=== PATIENT | male | born 1965 | race Caucasian/White ===

== ENCOUNTER 2017-08-28 12:45 | Emergency (ER) | payer BC ==
[2017-08-28 13:44] LABS: Absolute Lymphocytes (CBC) 2.8 K/uL (0.7-4.9); Absolute Monocytes 0.9 K/uL (0.1-1.3); Absolute Neutrophil 5.3 K/uL (1.8-8.0); Basophils % 0.8 % (0-1.3); Eosinophils % 2.7 % (0-4.4); Hematocrit 46.9 % (39.6-49.0); Lymphocytes % 30.1 % (15.3-44.8); MCH 28.5 pg (27.0-35.0); MCV 84.9 fL (80-100); MPV 8.8 fL (7.6-11.3); Monocytes % 9.7 % (3.3-12.3); RBC Red Blood Cell Count 5.52 M/uL (4.33-5.43)
[2017-08-28 13:47] LABS: Protime INR 0.97
[2017-08-28 13:56] LABS: ALT/SGPT 35 U/L (12-78); AST/SGOT 18 U/L (15-37); Alkaline Phosphatase 111 U/L (45-117); BUN Blood Urea Nitrogen 15 mg/dL (7-18); Bicarbonate 24 mmol/L (21-32); Bilirubin Direct < 0.1 mg/dL (0-0.2); Bilirubin Total 0.5 mg/dL (0.2-1.0); CKMB Creatine Kinase MB 1.1 ng/mL (0.3-3.6); Creatine Phosphokinase 157 U/L (39-308); Glucose Level 141 mg/dL (74-106); Magnesium 2.1 mg/dL (1.8-2.4); Potassium 3.5 mmol/L (3.5-5.1); Protein, Total 7.9 g/dL (6.4-8.2); Sodium Level 137 mmol/L (136-145)
[2017-08-28] MEDS ORDERED: MECLIZINE HCL 12.5 MG TAB ONE ×2 (14:22→14:25)
[2017-08-28] MEDS ORDERED: ONDANSETRON 4 MG (ODT) TAB ONE (14:23)
[2017-08-28] MEDS ORDERED: ONDANSETRON 4 MG/2 ML VIAL ONE (14:25)
--- NOTE | 2017-08-28 14:36 | RAD REPORT ---
EXAM DESCRIPTION: CT - Head Brain Wo Cont - 08/28/2017 2:06 pm CLINICAL HISTORY: Weakness, dizziness, syncope COMPARISON: None. TECHNIQUE: Axial 5 mm thick images of the head were obtained without IV contrast. All CT scans are performed using dose optimization technique as appropriate and may include automated exposure control or mA/KV adjustment according to patient size. FINDINGS: No intracranial hemorrhage, mass, edema or shift of mid-line structures. No acute infarcti on changes seen. No abnormal extra-axial fluid collections. Ventricles are normal. No cortical edema or sulcal effacement. Physiologic calcifications seen. Mastoid air cells and visualized portions of the paranasal sinuses are clear. No acute bony findings. IMPRESSION: Negative non-contrast CT head examination for acute finding.
--- NOTE | 2017-08-28 15:16 | RAD REPORT ---
EXAM DESCRIPTION: RAD - Chest Single View - 08/28/2017 2:06 pm CLINICAL HISTORY: Shortness of breath COMPARISON: None. TECHNIQUE: AP portable chest image was obtained 1404 hours . FINDINGS: Lung volumes are low. This accentuates vasculature and lung markings. Minimal interstitial edema or infiltrate could be masked. Heart size is normal range. Trachea is midline. No measurable p leural effusion and no pneumothorax. No gross bony abnormality seen. No acute aortic findings suspect ed. IMPRESSION: Vasculature and lung markings accentuated by shallow inspiration. Minimal edema or infil trate could be masked.
--- NOTE | 2017-08-28 16:29 | EDPHYS ---
Physician Documentation [facility] Name: Chaitanya Art Age: 52 yrs Sex: Male : 1965 Arrival Date: 08/28/2017 Time: 12:47 Bed 15 Private MD: Dhruv Bhatt B ED Physician Azam Kolb HPI: 08/28 14:00 This 52 yrs old Male presents to ER via Wheelchair with complaints of pm1 Dizziness. 14:00 The patient presents with vertigo. Onset: The symptoms/episode began/occurred 3 pm1 month(s) ago. Context:. Associated signs and symptoms: Pertinent positives: nausea, Tingling to right arm, Pertinent negatives: abdominal pain, chest pain, confusion, focal weakness, headache, palpitations, shortness of breath. Severity of symptoms: in the emergency department the symptoms have improved. Patient's baseline: Neuro: alert and fully oriented, Motor: no deficits, Ambulation: walks without assistance, Speech: normal, The patient has a previous history of vertigo. The patient has experienced similar episodes in the past, chronically, but today's symptoms are worse. Patient with vertigo symptoms for the past three months. When the patient changes position and looks left he gets the sensation of the room spinning. Patient has tinnitus in his right ear and right ear pressure/pain when he has the vertigo symptoms. Has addressed this with his PCP and was told that it was sinus congestion. Recommended treatment with antihistamines. Patient takes OTC antihistamines and they improve his vertigo. Today the patient was looking left while standing up from the [employer] at [employer] and experienced vertigo and nausea. Patient without any headache or chest pain. Historical: - Allergies: 13:04 NKA; iw - Home Meds: 13:04 metoprolol tartrate 25 mg Oral tab 1 tab 2 times per day [Active]; amlodipine 5 mg tab iw 1 tab once daily [Active]; atorvastatin 40 mg oral tab 1 tab once daily [Active]; - PMHx: 13:04 Hypertension; Hyperlipidemia; Kidney stones; iw - PSHx: 13:04 back; iw - Immunization history:: Adult Immunizations. - Social history:: Smoking status: unknown. - Ebola Screening: : Patient denies travel to an Ebola-affected area in the 21 days before illness onset. ROS: 14:00 Constitutional: Negative for fever, chills, and weight loss, Eyes: Negative for injury, pm1 pain, redness, and discharge, ENT: Negative for injury, pain, and discharge, Neck: Negative for injury, pain, and swelling, Cardiovascular: Negative for chest pain, palpitations, and edema, Respiratory: Negative for shortness of breath, cough, wheezing, and pleuritic chest pain. 14:00 Back: Negative for injury and pain, : Negative for injury, bleeding, discharge, and swelling, MS/Extremity: Negative for injury and deformity, Skin: Negative for injury, rash, and discoloration. 14:00 Abdomen/GI: Positive for nausea, Negative for abdominal pain, vomiting, diarrhea, constipation. 14:00 Neuro: Positive for dizziness, Negative for altered mental status, gait disturbance, headache, loss of consciousness, weakness. Exam: 14:00 Constitutional: This is a well developed, well nourished patient who is awake, alert, pm1 and in no acute distress. Head/Face: Normocephalic, atraumatic. Eyes: Pupils equal round and reactive to light, extra-ocular motions intact. Lids and lashes normal. Conjunctiva and sclera are non-icteric and not injected. Cornea within normal limits. Periorbital areas with no swelling, redness, or edema. ENT: Nares patent. No nasal discharge, no septal abnormalities noted. Tympanic membranes are normal and external auditory canals are clear. Oropharynx with no redness, swelling, or masses, exudates, or evidence of obstruction, uvula midline. Mucous membranes moist. Neck: Trachea midline, no thyromegaly or masses palpated, and no cervical lymphadenopathy. Supple, full range of motion without nuchal rigidity, or vertebral point tenderness. No Meningismus. Chest/axilla: Normal chest wall appearance and motion. Nontender with no deformity. No lesions are appreciated. Cardiovascular: Regular rate and rhythm with a normal S1 and S2. No gallops, murmurs, or rubs. Normal PMI, no JVD. No pulse deficits. Respiratory: Lungs have equal breath sounds bilaterally, clear to auscultation and percussion. No rales, rhonchi or wheezes noted. No increased work of breathing, no retractions or nasal flaring. Abdomen/GI: Soft, non-tender, with normal bowel sounds. No distension or tympany. No guarding or rebound. No evidence of tenderness throughout. Back: No spinal tenderness. No costovertebral tenderness. Full range of motion. Skin: Warm, dry with normal turgor. Normal color with no rashes, no lesions, and no evidence of cellulitis. MS/ Extremity: Pulses equal, no cyanosis. Neurovascular intact. Full, normal range of motion. 14:00 Neuro: Orientation: is normal, Mentation: is normal, Cranial nerves: CN II- XII are normal as tested, Cerebellar function: normal finger to nose testing, Motor: moves all fours, strength is 5/5 in all extremities, Sensation: is normal, no obvious gross deficits. 14:00 Psych: Behavior/mood is cooperative, anxious, Affect is animated, Oriented to person, pm1 place, time. Vital Signs: 13:03 BP 133 / 87; Pulse 75; Resp 18; Pulse Ox 98% on R/A; iw 13:49 BP 107 / 90; Pulse 79; Resp 18; Pulse Ox 100% on 2 lpm NC; tl3 15:34 BP 144 / 92; Pulse 65; Resp 18; Pulse Ox 97% on R/A; tl3 16:59 BP 121 / 88; Pulse 68; Resp 18; Pulse Ox 98% ; tl3 MDM: 13:19 Patient medically screened. pm1 16:20 ED course: Patient's symptoms resolved with medications given in the ER. Patient states pm1 his is ready to go home and would like a prescription for the medications that have resolved his vertigo. 16:26 Data reviewed: vital signs. Data interpreted: Pulse oximetry: on room air is 97 %. pm1 Interpretation: normal. Counseling: I had a detailed discussion with the patient and/or guardian regarding: the historical points, exam findings, and any diagnostic results supporting the discharge/admit diagnosis, lab results, radiology results, the need for outpatient follow up, an ENT specialist, a neurologist, to return to the emergency department if symptoms worsen or persist or if there are any questions or concerns that arise at home. 08/28 13:20 Order name: Basic Metabolic Panel; Complete Time: 14:13 tl3 08/28 13:20 Order name: CBC with Diff; Complete Time: 14:13 tl3 08/28 13:20 Order name: Ckmb; Complete Time: 14: tl3 08/28 13:20 Order name: CPK; Complete Time: 14:13 tl3 08/28 13:20 Order name: LFT's; Complete Time: 14:13 tl3 08/28 13:20 Order name: Magnesium; Complete Time: 14:13 tl3 08/28 13:20 Order name: PT-INR; Complete Time: 14:13 tl3 08/28 13:20 Order name: Ptt, Activated; Complete Time: 14:13 tl3 08/28 13:20 Order name: Troponin (emerg Dept Use Only); Complete Time: 14:13 tl3 08/28 13:20 Order name: XRAY Chest (1 view); Complete Time: 15:39 tl3 08/28 13:20 Order name: EKG; Complete Time: 13:23 tl3 08/28 13:39 Order name: CT Head Brain wo Cont; Complete Time: 15:09 pm1 08/28 13:20 Order name: Cardiac monitoring; Complete Time: 13:22 tl3 08/28 13:20 Order name: EKG - Nurse/Tech; Complete Time: 13:22 tl3 08/28 13:20 Order name: IV Saline Lock; Complete Time: 13:22 tl3 08/28 13:20 Order name: Labs collected and sent; Complete Time: 13:22 tl3 08/28 13:20 Order name: O2 Per Protocol; Complete Time: 13:22 tl3 08/28 13:20 Order name: O2 Sat Monitoring; Complete Time: 13:22 tl3 Administered Medications: 14:32 Drug: Meclizine 50 mg Route: PO; tl3 16:58 Follow up: Response: No adverse reaction tl3 14:32 Drug: Zofran 4 mg Route: IVP; Site: left antecubital; tl3 16:58 Follow up: Response: No adverse reaction; Nausea is decreased tl3 Point of Care Testing: Blood Glucose: 13:03 Blood Glucose: 119 mg/dL; iw Ranges: Critical Glucose Levels:Adult <50 mg/dl or >400 mg/dl <40 mg/dl or >180 mg/dl Disposition: 08/29 16:13 Co-signature as Attending Physician, Azam OLIVA I agree with the assessment and beni plan of care. Disposition: 08/28/17 16:28 Discharged to Home. Impression: Benign paroxysmal vertigo. - Condition is Stable. - Discharge Instructions: Benign Positional Vertigo. - Prescriptions for Meclizine 25 mg Oral Tablet - take 1 tablet by ORAL route every 8 hours As needed; 30 tablet. Zofran 4 mg Oral Tablet - take 1 tablet by BUCCAL route every 8 hours As needed; 20 tablet. - Medication Reconciliation Form, Thank You Letter, Antibiotic Education form. - Follow up: Emergency Department; When: As needed; Reason: Worsening of condition. Follow up: Gaby Hansen MD; When: 2 - 3 days; Reason: Recheck today's complaints, Continuance of care, Re-evaluation by your physician. Follow up: Mynor Leiva MD; When: 2 - 3 days; Reason: Recheck today's complaints, Continuance of care, Re-evaluation by your physician. - Problem is new. - Symptoms have improved. Signatures: Dispatcher [employer] EDMS Azam Kolb MD MD cha Williams, Irene, RN RN iw Gerald Reyes NP ENGINEER SERGEANT pm1 Genie Wallace RN RN tl3 Corrections: (The following items were deleted from the chart) 08/28 17:02 16:28 08/28/2017 16:28 Discharged to Home. Impression: Benign paroxysmal vertigo. tl3 Condition is Stable. Forms are Medication Reconciliation Form, Thank You Letter, Antibiotic Education, Prescription Opioid Use. Follow up: Emergency Department; When: As needed; Reason: Worsening of condition. Follow up: Gaby Hansen; When: 2 - 3 days; Reason: Recheck today's complaints, Continuance of care, Re-evaluation by your physician. Follow up: Mynor Leiva; When: 2 - 3 days; Reason: Recheck today's complaints, Continuance of care, Re-evaluation by your physician. Problem is new. Symptoms have improved. pm1
--- NOTE | 2017-08-28 16:29 | ER ---
Nurse's Notes [facility] Name: Chaitanya Art Age: 52 yrs Sex: Male : 1965 Arrival Date: 08/28/2017 Time: 12:47 Bed 15 Private MD: Dhruv Bhatt B Diagnosis: Benign paroxysmal vertigo Presentation: 08/28 13:00 Presenting complaint: Patient states: got really dizzy while leaving congregation at 1210, iw feels like both arms are numb, pale, diaphoretic, mild SOB, denies CP, denies n/v. CM=[id number]. pt states he has had dizziness recently due to bp medication, worse today. Transition of care: patient was not received from another setting of care. Onset of symptoms was August 28, 2017. 13:00 Method Of Arrival: Wheelchair iw 13:01 Risk Assessment: Do you want to hurt yourself or someone else? Patient reports no iw desire to harm self or others. Initial Sepsis Screen: Does the patient meet any 2 criteria? No. Patient's initial sepsis screen is negative. Does the patient have a suspected source of infection? No. Patient's initial sepsis screen is negative. Care prior to arrival: None. 13:01 Acuity: SORIN 2 iw Historical: - Allergies: 13:04 NKA; iw - Home Meds: 13:04 metoprolol tartrate 25 mg Oral tab 1 tab 2 times per day [Active]; amlodipine 5 mg tab iw 1 tab once daily [Active]; atorvastatin 40 mg oral tab 1 tab once daily [Active]; - PMHx: 13:04 Hypertension; Hyperlipidemia; Kidney stones; iw - PSHx: 13:04 back; iw - Immunization history:: Adult Immunizations. - Social history:: Smoking status: unknown. - Ebola Screening: : Patient denies travel to an Ebola-affected area in the 21 days before illness onset. Screenin:14 Abuse screen: Denies threats or abuse. Nutritional screening: No deficits noted. tl3 Tuberculosis screening: No symptoms or risk factors identified. Fall Risk None identified. Assessment: 13:14 General: Appears distressed, uncomfortable, obese, well groomed, well developed, well tl3 nourished, Behavior is cooperative, appropriate for age, anxious. Pain: Denies pain. Neuro: Level of Consciousness is awake, alert, obeys commands, Oriented to person, place, time, situation, Appropriate for age Reports dizziness, weakness. Cardiovascular: Denies chest pain, Capillary refill < 3 seconds in bilateral fingers. Respiratory: Reports shortness of breath at rest since one hour CONTRACTOR GENERAL ENGINEERING Airway is patent Respiratory effort is even, unlabored, Respiratory pattern is regular, symmetrical, tachypnea Breath sounds are clear bilaterally. GI: No signs and/or symptoms were reported involving the gastrointestinal system. : No signs and/or symptoms were reported regarding the genitourinary system. EENT: No signs and/or symptoms were reported regarding the EENT system. EENT: Reports ringing in left ear right ear is completely plugged feeling. Derm: Skin is diaphoretic, Skin is pale, Skin temperature is cool. 15:34 Reassessment: Patient appears in no apparent distress at this time. No changes from tl3 previously documented assessment. Patient and/or family updated on plan of care and expected duration. Pain level reassessed. Patient is alert, oriented x 3, equal unlabored respirations, skin warm/dry/pink. pt feeling much better. Vital Signs: 13:03 BP 133 / 87; Pulse 75; Resp 18; Pulse Ox 98% on R/A; iw 13:49 BP 107 / 90; Pulse 79; Resp 18; Pulse Ox 100% on 2 lpm NC; tl3 15:34 BP 144 / 92; Pulse 65; Resp 18; Pulse Ox 97% on R/A; tl3 16:59 BP 121 / 88; Pulse 68; Resp 18; Pulse Ox 98% ; tl3 ED Course: 12:47 Patient arrived in ED. mr 12:47 Dhruv Bhatt MD is Private Physician. mr 13:02 Triage completed. iw 13:14 Genie Wallace, JOSTIN is Primary Nurse. tl3 13:14 Patient has correct armband on for positive identification. tl3 13:14 No provider procedures requiring assistance completed. tl3 13:18 Gerald Reyes NP is PHCP. pm1 13:18 Azam Kolb MD is Attending Physician. pm1 13:21 EKG done, by ED staff, reviewed by Gerald Reyes NP. jb1 13:22 Initial lab(s) drawn, by wv. Inserted saline lock: 22 gauge in left antecubital area, jb1 using aseptic technique. Blood collected. 13:[address] cw1 14:04 X-ray completed. Portable x-ray completed in exam room. Patient tolerated procedure la2 well. 14:05 CT completed. Patient moved back from CT. cw1 14:05 XRAY Chest (1 view) In Process Unspecified. EDMS 14:06 CT Head Brain wo Cont In Process Unspecified. EDMS 16:27 Gaby Hansen MD is Referral Physician. pm1 16:27 Mynor Leiva MD is Referral Physician. pm1 16:59 IV discontinued, intact, bleeding controlled, No redness/swelling at site. Pressure tl3 dressing applied. 17:01 Arm band placed on left wrist. tl3 Administered Medications: 14:32 Drug: Meclizine 50 mg Route: PO; tl3 16:58 Follow up: Response: No adverse reaction tl3 14:32 Drug: Zofran 4 mg Route: IVP; Site: left antecubital; tl3 16:58 Follow up: Response: No adverse reaction; Nausea is decreased tl3 Point of Care Testing: Blood Glucose: 13:03 Blood Glucose: 119 mg/dL; iw Ranges: Outcome: 16:28 Discharge ordered by MD. pm1 16:59 Discharged to home ambulatory. tl3 16:59 Condition: good 16:59 Discharge instructions given to patient, Instructed on discharge instructions, follow up and referral plans. medication usage, Demonstrated understanding of instructions, follow-up care, medications, Prescriptions given X 2. 17:02 Patient left the ED. tl3 Signatures: Dispatcher [employer] EDVA Felipe Nunez jb1 Jackie Jackson Irene, RN RN Estephania Quick cw1 Gerald Reyes, CHRISTIANO LIBERAL ARTS TEACHER pm1 Peggy Jean Baptiste la2 Genie Wallace, JOSTIN RN tl3 Corrections: (The following items were deleted from the chart) 13:02 13:00 Presenting complaint: Patient states: got really dizzy while leaving congregation at iw 1210, feels like both arms are numb, pale, diaphoretic, mild SOB, denies CP, denies n/v. [id number] iw 13:22 13:14 Inserted saline lock: 20 gauge in left antecubital area, using aseptic technique. jb1 Blood collected. tl3
[2017-08-28 17:09] VITALS: BP 121/88; O2SAT 98
--- NOTE | 2017-08-29 06:53 | EKG ---
Test Date: 2017-08-28 Test Time: 12:59:07 Certified Vehicle Fire Investigator: MARYANN MEASUREMENT RESULTS: Intervals: Rate: 69 [place]: 150 QRSD: 96 QT: 400 QTc: 428 [place]: P: 8 [place]: 150 QRS: -2 T: 18 INTERPRETIVE STATEMENTS: Normal sinus rhythm Low voltage QRS Borderline ECG Compared to ECG 04/13/2014 07:47:59 Low QRS voltage now present Electronically Signed On 08-29-17 06:52:36 CDT by Jimmie Perea
== END 2017-08-28 17:02 | disposition home or self-care (01) ==
LOC: ER 12:45
DX: H81.10 Benign paroxysmal vertigo, unspecified ear (principal); I10 Essential (primary) hypertension; E78.5 Hyperlipidemia, unspecified
CPT/HCPCS: 36415; 70450; 71045; 80048; 80076; 82550; 82553; 82962; 83735; 84484; 85025; 85610; 85730; 93005; 96374; 99284; J2405